=== PATIENT | male | born 1970 | race Caucasian/White ===

== ENCOUNTER 2018-02-05 13:02 | Emergency (ER) | payer MEDICARE, MEDICAID ==
[~2018-02-05] VITALS: Ht 177.8 cm; Wt 64.9 kg
[~2018-02-05 13:02] MED LIST: PROP60CA8; QUET100T4
[2018-02-05 13:04] VITALS: BP 110/77
== END 2018-02-05 15:47 | disposition left against medical advice (07) ==
LOC: ED 15:41
DX: M79.1 Myalgia (principal); R10.9 Unspecified abdominal pain; F41.9 Anxiety disorder, unspecified
CPT/HCPCS: 93005; 99283

== ENCOUNTER 2018-03-04 05:54 | Emergency (ER) | payer MEDICARE, MEDICAID ==
[~2018-03-04] VITALS: Ht 177.8 cm; Wt 65.2 kg
[2018-03-04 05:57] VITALS: BP 119/71
[2018-03-04 06:35] LABS: BASOPHILS # (AUTO) 0.07 x10^3/uL (0-0.1); BASOPHILS % (AUTO) 1 % (0-1); EOSINOPHILS # (AUTO) 0.17 x10^3/uL (0-0.4); EOSINOPHILS % (AUTO) 2 % (1-7); LYMPHOCYTES % (AUTO) 16 % (22-44); MD NO; MEAN CORPUSCULAR HEMOGLOBIN 31.6 pg (27.5-34.5); MEAN CORPUSCULAR HGB CONC 34.3 g/dL (33.2-36.2); MEAN CORPUSCULAR VOLUME 92.2 fL (81-97); MEAN PLATELET VOLUME 7.8 fL (7.4-10.4); MONOCYTES # (AUTO) 1.01 x10^3/uL (0.2-0.8); MONOCYTES % (AUTO) 11 % (2-9); NEUTROPHILS # (AUTO) 6.89 x10^3/uL (1.8-6.8); NEUTROPHILS % (AUTO) 72 % (42-75); PLATELET COUNT 293 x10^3/uL (130-400); RED BLOOD COUNT 4.96 x10^6/uL (4.38-5.82); RED CELL DISTRIBUTION WIDTH 12.9 % (9.4-14.8)
[2018-03-04 06:45] LABS: ALANINE AMINOTRANSFERASE 23 U/L (12-78); ALBUMIN 3.8 g/dL (3.4-5.0); ANION GAP 8 mmol/L (5-15); CALCIUM 8.8 mg/dL (8.5-10.1); CHLORIDE 113 mmol/L (98-107); CREATININE 0.86 mg/dL (0.7-1.3)
[2018-03-04 06:47] LABS: ALKALINE PHOSPHATASE 98 U/L (45-117); BILIRUBIN,TOTAL 0.6 mg/dL (0.2-1.0); TOTAL PROTEIN 6.6 g/dL (6.4-8.2)
[2018-03-04 08:44] LABS: MICROSCOPIC NOT IND
[2018-03-04 08:53] LABS: CULTURE INDICATED? NO
== END 2018-03-04 09:20 | disposition home or self-care (01) ==
LOC: ED 08:40
DX: G89.29 Other chronic pain (principal); R10.84 Generalized abdominal pain; R19.7 Diarrhea, unspecified; K86.1 Other chronic pancreatitis; F31.9 Bipolar disorder, unspecified
CPT/HCPCS: 36415; 80053; 81003; 83690; 85025; 99284

== ENCOUNTER 2018-09-22 08:40 | Emergency (ER) | payer MEDICARE, MEDICAID ==
[~2018-09-22] VITALS: Ht 177.8 cm; Wt 59.6 kg
[2018-09-22 08:51] VITALS: BP 138/76
[2018-09-22] MEDS ORDERED: SULFAMETH./TRIMETHOPRIM DS 800MG/160MG TABLET ONE (09:44)
[2018-09-22] MEDS ORDERED: CEPHALEXIN 500 MG CAPSULE ONE (09:44)
[2018-09-22] MEDS ORDERED: SULFAMETH./TRIMETHOPRIM DS 800MG/160MG TABLET PO ONE (10:00)
[2018-09-22] MEDS ORDERED: CEPHALEXIN 500 MG CAPSULE PO ONE (10:00)
== END 2018-09-22 10:28 | disposition home or self-care (01) ==
LOC: ED 10:00
DX: G89.11 Acute pain due to trauma (principal); L03.011 Cellulitis of right finger; M79.644 Pain in right finger(s)
CPT/HCPCS: 29130; 82962; 99284

== ENCOUNTER 2018-11-18 05:22 | Emergency (ER) | payer MEDICARE, MEDICAID ==
[~2018-11-18] VITALS: Ht 177.8 cm; Wt 52.8 kg
[2018-11-18 05:25] VITALS: BP 121/90
== END 2018-11-18 06:46 | disposition home or self-care (01) ==
LOC: ED 06:24
DX: G89.11 Acute pain due to trauma (principal); M25.512 Pain in left shoulder; W23.1XXA Caught, crushed, jammed, or pinched between stationary objects, initial encounter; Y93.39 Activity, other involving climbing, rappelling and jumping off; Y92.410 Unspecified street and highway as the place of occurrence of the external cause; Y99.8 Other external cause status
CPT/HCPCS: 99283

== ENCOUNTER 2018-12-22 15:32 | Emergency (ER) | payer MEDICAID, MEDICARE ==
[~2018-12-22] VITALS: Ht 177.8 cm; Wt 59.8 kg
[2018-12-22 15:45] VITALS: BP 122/83
[2018-12-22] MEDS ORDERED: IBUPROFEN 200 MG TABLET ONE (15:56)
[2018-12-22] MEDS ORDERED: IBUPROFEN 200 MG TABLET PO ONE (16:00)
== END 2018-12-22 16:31 | disposition home or self-care (01) ==
LOC: ED 16:05
DX: S92.342A Displaced fracture of fourth metatarsal bone, left foot, initial encounter for closed fracture (principal); F31.9 Bipolar disorder, unspecified; F17.200 Nicotine dependence, unspecified, uncomplicated; W22.09XA Striking against other stationary object, initial encounter; Y93.89 Activity, other specified; Y92.098 Other place in other non-institutional residence as the place of occurrence of the external cause; Y99.8 Other external cause status
CPT/HCPCS: 99283

== ENCOUNTER 2020-08-07 02:16 | Emergency (ER) | payer MEDICARE ==
[~2020-08-07] VITALS: Ht 177.8 cm; Wt 59.2 kg
[~2020-08-07 02:16] MED LIST changes: +PROP60CA36; -PROP60CA8
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
--- NOTE | 2020-08-07 04:40 | NUR ---
ED provider at bedside
[2020-08-07 04:58] VITALS: BP 117/70
== END 2020-08-07 05:00 | disposition home or self-care (01) ==
LOC: ED 02:46
DX: S20.211A Contusion of right front wall of thorax, initial encounter (principal); F17.210 Nicotine dependence, cigarettes, uncomplicated; Y04.8XXA Assault by other bodily force, initial encounter; Y93.89 Activity, other specified; Y92.89 Other specified places as the place of occurrence of the external cause; Y99.8 Other external cause status
CPT/HCPCS: 71046; 99283; 99406

== ENCOUNTER 2020-11-26 08:47 | Emergency (ER) | payer MEDICARE ==
[~2020-11-26] VITALS: Ht 177.8 cm; Wt 60.1 kg
[2020-11-26] MEDS ORDERED: KETOROLAC 30 MG/1 ML ONE (09:20)
[2020-11-26] MEDS ORDERED: OXYcodone/APAP 5/325MG TABLET ONE ×2 (09:21→09:25)
[2020-11-26] MEDS ORDERED: OXYcodone/APAP 5/325MG TABLET PO ONE (09:30)
[2020-11-26] MEDS ORDERED: KETOROLAC 30 MG/1 ML IM ONE (09:30)
[2020-11-26 10:48] VITALS: BP 145/90
== END 2020-11-26 10:49 | disposition home or self-care (01) ==
LOC: ED 10:47
DX: S62.332A Displaced fracture of neck of third metacarpal bone, right hand, initial encounter for closed fracture (principal); S62.322A Displaced fracture of shaft of third metacarpal bone, right hand, initial encounter for closed fracture; W01.0XXA Fall on same level from slipping, tripping and stumbling without subsequent striking against object, initial encounter; Y93.79 Activity, other specified sports and athletics; Y92.830 Public park as the place of occurrence of the external cause; Y99.8 Other external cause status
CPT/HCPCS: 29125; 71101; 73030; 73130; 96372; 99284; J1885